=== PATIENT | male | born 1950 | race Caucasian/White ===

== ENCOUNTER 2019-02-05 09:17 | Emergency (ER) | payer OTHER, MEDICARE ==
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
[2019-02-05 09:44] LABS: CHLORIDE,CL 103 mEq/L (98-106); SODIUM,NA 141 mEq/L (136-145)
[2019-02-05] MEDS: Iopamidol 755 Mg/ML 100 ML Bottle IVPUSH ONE (09:44)
[2019-02-05] MEDS: fentaNYL 100 MCG/2 ML SDV IVPUSH PRN (10:00)
[2019-02-05] MEDS: Diphtheria,Pertussis(Acell),Tetanus Vaccine 0.5 ML Syringe IM ONE (10:37)
[2019-02-05] MEDS: Diphtheria,Pertussis(Acell),Tetanus Vaccine 0.5 ML Syringe ONE (11:47)
[2019-02-05 12:48] VITALS: BP 140/62
== END 2019-02-05 11:55 | disposition home or self-care (01) ==
LOC: CC.ED 09:17
DX: S20.212A Contusion of left front wall of thorax, initial encounter (principal); S00.81XA Abrasion of other part of head, initial encounter; S80.212A Abrasion, left knee, initial encounter; S40.812A Abrasion of left upper arm, initial encounter; S30.811A Abrasion of abdominal wall, initial encounter; S80.211A Abrasion, right knee, initial encounter; E11.40 Type 2 diabetes mellitus with diabetic neuropathy, unspecified; E66.9 Obesity, unspecified; Z79.899 Other long term (current) drug therapy; Z79.4 Long term (current) use of insulin; V49.88XA Car occupant (driver) (passenger) injured in other specified transport accidents, initial encounter
CPT/HCPCS: 36415; 70450; 71260; 72125; 74177; 80053; 82150; 85025; 85610; 90471; 90715; 96374; 99285-25; G0390; J3010; Q9967